=== PATIENT | female | born 1980 | race Caucasian/White ===

== ENCOUNTER 2019-04-20 05:33 | Day surgery (SDC) | payer BC ==
[2019-04-09 09:48] LABS: HEMATOCRIT 44.4 % (36.0-47.0); HEMOGLOBIN 15.5 g/dL (12.0-15.5); MEAN CORPUSCULAR HEMOGLOBIN 28.9 pg (27.0-33.4); MEAN CORPUSCULAR HGB CONC 34.9 g/dL (32.0-36.0); MEAN CORPUSCULAR VOLUME 83 fl (80-97); PLATELET COUNT 295 10^3/uL (150-450); RED BLOOD COUNT 5.36 10^6/uL (3.72-5.28); RED CELL DISTRIBUTION WIDTH 13.4 % (11.5-14.0); WHITE BLOOD COUNT 8.8 10^3/uL (4.0-10.5)
[2019-04-09 10:10] LABS: ALBUMIN 4.2 g/dL (3.5-5.0); ALKALINE PHOSPHATASE 84 U/L (38-126); ANION GAP 12 (5-19); ASPARTATE AMINO TRANSFERASE 31 U/L (14-36); BILIRUBIN,DIRECT 0.3 mg/dL (0.0-0.4); BILIRUBIN,TOTAL 1.5 mg/dL (0.2-1.3); BLOOD UREA NITROGEN 9 mg/dL (7-20); CARBON DIOXIDE 26 mmol/L (22-30); CHLORIDE 104 mmol/L (98-107); GLUCOSE 89 mg/dL (75-110); POTASSIUM 4.2 mmol/L (3.6-5.0); TOTAL PROTEIN 7.5 g/dL (6.3-8.2)
[~2019-04-20 05:33] MED LIST: CEFAZOLIN SODIUM 1 GM in DEXTROSE 5%-WATER 50 ML IV PRN; LACTATED RINGERS 1000 ML IV PRN; LIDOCAINE 0.5% INJ-PF (5 MG/ML) 50 ML SDV SUBCUT PRN
[2019-04-20] MEDS ORDERED: FENTANYL CITRATE INJ/PF 100 MCG/2 ML AMPUL ONE (06:49)
[2019-04-20] MEDS ORDERED: MIDAZOLAM 2 MG/2 ML INJ ONE (06:49)
[2019-04-20] MEDS ORDERED: PROMETHAZINE HCL INJ 25 MG/1 ML VIAL ONE (06:49)
[2019-04-20] MEDS ORDERED: PROPOFOL INJ 200 MG/20 ML VIAL IV ONE (06:49)
[2019-04-20] MEDS ORDERED: LIDOCAINE 2% INJ (20 MG/ML) 20 ML MDV ONE (06:50)
[2019-04-20] MEDS ORDERED: BUPIVACAINE HCL 0.25 % INJ/PF (2.5 MG/1 ML) 30 ML VIAL ONE (07:16)
[2019-04-20] MEDS ORDERED: PROMETHAZINE HCL INJ 25 MG/1 ML VIAL IV PRN ×2 (07:46→09:17)
[2019-04-20] MEDS ORDERED: MORPHINE SULFATE 10 MG/ML INJ IV PRN (07:46)
[2019-04-20] MEDS ORDERED: DIPHENHYDRAMINE HCL 50 MG/ML VIAL IV PRN (07:46)
[2019-04-20] MEDS ORDERED: OXYCODONE-ACETAMINOPHEN 5-325 MG TABLET PO PRN ×4 (07:46→09:17)
[2019-04-20] MEDS ORDERED: MEPERIDINE HCL/PF INJ 25 MG/1 ML DISP.SYRIN IV PRN (07:46)
[2019-04-20] MEDS ORDERED: FENTANYL CITRATE INJ/PF 100 MCG/2 ML AMPUL IV PRN ×3 (07:46)
[2019-04-20] MEDS ORDERED: ONDANSETRON HCL INJ/PF 4 MG/2 ML SDV IV PRN (07:46)
[2019-04-20] MEDS ORDERED: BUPIVACAINE HCL 0.25 % INJ/PF (2.5 MG/1 ML) 30 ML VIAL INJ ONE (08:20)
--- NOTE | 2019-04-20 08:55 | Operative Report ---
Operative Report DATE OF SURGERY: 04/20/19 PREOPERATIVE DIAGNOSIS: Fertility POSTOPERATIVE DIAGNOSIS: same OPERATION: Laparosopic Filischie clip application SURGEON: grace REA 1ST ER NURSE: none ANESTHESIA: GA TISSUE REMOVED OR ALTERED: none COMPLICATIONS: none ESTIMATED BLOOD LOSS: neg INTRAOPERATIVE FINDINGS: Normal female anatomy PROCEDURE: Patient was brought into the OR placed on the table in a supine position. The patient was then inducted under general anesthesia. The patient was repositioned in a dorsolithotomy position. Patient was prepped and draped in sterile fashion. After timeout the patient's bladder was drained of 100 cc of clear yellow urine. Pelvic under anesthesia was performed with normal findings. Then using lateral retractors the cervix was located. The cervix was grasped on its anterior lip with a single-tooth tenaculum. Uterus was sounded to 8 cm. A tenaculum probe was then applied. The other equipment was removed. It was turned toward the patient's abdominal wall. A varies needle was introduced through the umbilicus and carried until the peritoneal cavity was entered. Patient then had approximately 3 L of CO2 injected under pressure of 15 cm of water. Varies needle was removed. All incision was made infraumbilically. Through this incision a trocar and sleeve were inserted. Trocar was removed and then a laparoscope was inserted. A second incision was then made suprapubically. Incision trocar and sleeve were inserted. The guide was removed and through the sleeve the probe was inserted. The Filshie clip applicator was then insert. First the right tube and then the left tube had Filshie clips applied. This terminated the procedure. The suprapubic sleeve was removed. There was no evidence of active bleeding. CO2 was allowed to escape. The infraumbilical sleeve was then removed. She had 4 cc of quarter percent Marcaine injected in the subumbilical incision and 3 cc of quarter percent Marcaine injected in the suprapubic incision. The fascia was closed in the umbilical incision with 0 Vicryl. Fascia was closed and the suprapubic incision also was 0 Vicryl. Skin edges were brought together in the subumbilical incision with a subcuticular stitch using 4-0 Prolene. The suprapubic incision was closed with interrupted 4-0 Prolene. Bandages were applied. The tenaculum probe was then removed. No evidence of vaginal bleeding. Tolerated procedure well had a negligible blood loss.
[2019-04-20] MEDS: FENTANYL CITRATE INJ/PF 100 MCG/2 ML AMPUL ONE ×2 (08:59→09:07)
[2019-04-20] MEDS ORDERED: ACETAMINOPHEN 1,000 MG/100 ML RTUPB IV ONE (09:12)
[2019-04-20] MEDS ORDERED: ROCURONIUM BROMIDE INJ 50 MG/5 ML VIAL IV ONE (10:46)
[2019-04-20] MEDS ORDERED: DEXAMETHASONE SOD PHOSPHATE INJ 4 MG/1 ML VIAL ONE (10:46)
[2019-04-20] MEDS ORDERED: SUCCINYLCHOLINE CHLORIDE INJ 200 MG/10 ML VIAL ONE (10:46)
[2019-04-20] MEDS ORDERED: ONDANSETRON HCL INJ/PF 4 MG/2 ML SDV ONE (10:46)
[2019-04-20] MEDS ORDERED: KETOROLAC TROMETHAMINE 60 MG/2 ML SDV ONE (10:46)
[2019-04-20 12:02] VITALS: BP 159/94
== END 2019-04-20 11:15 | disposition home or self-care (01) ==
LOC: OROUT 05:33
PROVIDERS: ATTEND Obstetrics & Gynecology
DX: Z30.2 Encounter for sterilization (principal); E66.9 Obesity, unspecified; Z68.33 Body mass index [BMI] 33.0-33.9, adult
CPT/HCPCS: 36415; 85027; 80053; 00851; 58671; J2250; J3490 ×2; J0690; J1100; J1885; J3010; J2550; J0330; J2405; J7060; J2704; J0131; 851